=== PATIENT | male | born 1970 | race Hispanic/Latino ===

== ENCOUNTER 2018-07-02 21:22 | Emergency (ER) | payer BC, OTHER ==
[2018-07-02 21:39] VITALS: BMI 21.4
--- NOTE | 2018-07-02 22:52 | ED PDOC ---
Arrival/HPI - General Chief Complaint: Trauma Time Seen by Provider: 07/02/18 21:37 Historian: Patient - History of Present Illness Narrative History of Present Illness (Text): 07/02/18 22:49 48 year old male, with no significant past medical history, presents to the emergency department for evaluation, status post fall outdoors. Patient informs falling and hitting face on the ground. Patient states he injured his nose in the fall. Patient denies any loss of consciousness. Patient has a noted abrasion/ cut to the nose. Patient denies any neck pain, headache, nausea, vomiting, diarrhea, or any other complaint.Admits to having a few alcoholic drinks but states he is not drunk. Time/Duration: Prior to Arrival Symptom Onset: Sudden Context: Street Past Medical History - Provider Review Nursing Documentation Reviewed: Yes - Psychiatric Hx Substance Use: No - Anesthesia Hx Anesthesia: No Family/Social History - Physician Review Nursing Documentation Reviewed: Yes Family/Social History: No Known Family HX Smoking Status: Never Smoked Hx Alcohol Use: Yes Frequency of alcohol use: Socially Hx Substance Use: No Allergies/Home Meds Allergies/Adverse Reactions: Allergies No Known Allergies Allergy (Verified 07/02/18 21:33) Review of Systems - Physician Review All systems were reviewed & negative as marked: Yes - Review of Systems Gastrointestinal: absent: Diarrhea, Nausea, Vomiting Musculoskeletal: absent: Neck Pain Skin: Laceration (LAC/ abrassion to the nose) Neurological: absent: Headache Physical Exam Temperature: Afebrile Blood Pressure: Normal Pulse: Regular Respiratory Rate: Normal Appearance: Positive for: Well-Appearing, Non-Toxic, Comfortable Pain Distress: None Mental Status: Positive for: Alert and Oriented X 3 - Systems Exam Head: Present: Abrasion (facial) Pupils: Present: PERRL Extroacular Muscles: Present: EOMI Conjunctiva: Present: Normal Ears: Present: NORMAL TM Mouth: Present: Moist Mucous Membranes, Other (0.5 cm inner upper oral mucosal laceration lip area) Nose (External): Present: Laceration (<0.5 cm laceration to the nasal bridge with minimal bridge swelling) Nose (Internal): No: Epistaxis Neck: Present: Normal Range of Motion Respiratory/Chest: Present: Clear to Auscultation, Good Air Exchange. No: Respiratory Distress, Accessory Muscle Use Cardiovascular: Present: Regular Rate and Rhythm, Normal S1, S2. No: Murmurs Abdomen: No: Tenderness, Distention, Peritoneal Signs Back: Present: Normal Inspection Upper Extremity: Present: Normal Inspection. No: Cyanosis, Edema Lower Extremity: Present: Normal Inspection. No: Edema Neurological: Present: GCS=15, CN II-XII Intact, Speech Normal, Motor Func Grossly Intact, Normal Sensory Function Skin: Present: Warm, Dry, Normal Color. No: Rashes Psychiatric: Present: Alert, Oriented x 3, Normal Insight, Normal Concentration Medical Decision Making ED Course and Treatment: 07/02/18 22:55 Impression: 48 year old male presents for evaluation after fall Plan: -- CT Head -- CT Maxillofacial -- Reassess and disposition Prior Visits: Notes and results from previous visits were reviewed. Progress Notes: 07/03/18 00:07 Surgical consult was requested for suture repair.Patient had wounds sutured by Dr. Lucius Rangel under my supervision. 07/03/18 00:24 Patient is signing out against medical advice. Patient has refused CT scan studies of his face and head. Patient understand the risk including the possibility of fracture and bleeding. Nevertheless, patient is insistent about not wanting scans. Patient's mother is also present with him. Patient will be given discharge instructions for follow up care of his wounds, and a prescription for antibiotics. The patient declines to have further medical evaluation and treatment and wishes to leave the Emergency Department. This action is against my medical advice to the patient, and with informed refusal. The patient was told that evaluation and treatment are necessary and a full explanation of the rationale was given. The risks of leaving were explained to the patient and include, but are not limited to, worsening of known or currently unknown conditions, permanent disability and from undiagnosed or untreated conditions The patient has the capacity to make this informed decision and understands the clinical situation and my explanation of the risks of leaving. The patient voluntarily accepts these risks, and a signed AMA form documenting our conversation was obtained. The patient was given the opportunity to ask questions and reconsider. The patient was encouraged to return to the Emergency Department at any time for further care. The patient declines CT Scans of face and head, as recommended for medical evaluation. This action is against my medical advice to the patient and with informed refusal. The patient was told that this evaluation is necessary and a full explanation of the rationale was given. The risks of refusing were explained to the patient and include, but are not limited to, worsening of known or currently unknown conditions, permanent disability and from undiagnosed or untreated conditions. The patient has the capacity to make this decision and has the capacity to understand the clinical situation and my explanation of the risks of refusing this test. The patient voluntarily accepts these risks. The patient was given the opportunity to ask questions and reconsider. - RAD Interpretation Radiology Orders: 07/02/18 21:41 HEAD W/O CONTRAST [CT] Stat MAXILLOFACIAL W/O CONTRAST [CT] Stat - Scribe Statement The provider has reviewed the documentation as recorded by the Scribe Hernan Lou Provider Scribe Attestation: All medical record entries made by the Scribe were at my direction and personally dictated by me. I have reviewed the chart and agree that the record accurately reflects my personal performance of the history, physical exam, medical decision making, and the department course for this patient. I have also personally directed, reviewed, and agree with the discharge instructions and disposition. Disposition/Present on Arrival - Present on Arrival Any Indicators Present on Arrival: No History of DVT/PE: No History of Uncontrolled Diabetes: No Urinary Catheter: No History of Decub. Ulcer: No History Surgical Site Infection Following: None - Disposition Have Diagnosis and Disposition been Completed?: Yes Diagnosis: Nasal laceration, Facial injury, Head injury, Facial abrasion, Laceration of mouth Disposition: AGAINST MEDICAL ADVICE Disposition Time: 00:17 Condition: GOOD Additional Instructions: Take medication as prescribed/must follow up in 5 days to have your sutures removed Prescriptions: Amoxicillin [Amoxil 500 mg Cap] 500 mg PO TID #21 cap Forms: Sitemasher (Nepali)
[2018-07-02] MEDS ORDERED: Lidocaine PF 2% (5 ml) Inj (For Cardiac Arrhy) ONE (23:07)
[2018-07-02 23:57] VITALS: RESP 20; TEMP 98; O2SAT 99
--- NOTE | 2018-07-03 00:01 | PCM.PROC ---
Procedures Attestation:: I certify that I have explained the specified Operation(s) or Procedure(s), risks, benefits and reasonable alternatives to the Patient and/or other person responsible. The opportunity was given to ask questions and all questions answered - Laceration lidocaine 2% simple, single layer linear irrigated extensively right face 4-0 other local infiltration simple, interrupted Site: other (right superolateral aspect of nose) Side (if applicable): right Description: linear Depth: simple, single layer Anesthesia used: lidocaine 2% Anesthesia technique: local infiltration Amount (mLs): 2 Pre-repair: irrigated extensively Skin layer closed with: other (proline) Size: 4-0 Number of sutures: 4 Technique: simple, interrupted lidocaine 2% simple, single layer linear irrigated extensively lip 4-0 other local infiltration simple, interrupted Site: lip Description: linear Depth: simple, single layer Anesthesia used: lidocaine 2% Anesthesia technique: local infiltration Pre-repair: irrigated extensively Size: 4-0, other (monocryl) Number of sutures: 3 Technique: simple, interrupted
--- NOTE | 2018-07-03 00:14 | CP.PCM.PN ---
Subjective - Date & Time of Evaluation Date of Evaluation: 07/03/18 Time of Evaluation: 11:35 - Subjective Subjective: PROCEDURE NOTE: 48M presented with small laceration along right superolateral border of nose measuring approximately 0.7cm as well as a superficial laceration along the inner border of the upper lip measuring approximately 0.6cm after suffering a fall. Informed consent was obtained before procedure started from mother at bedside as patient is inebriated and unable to make appropriate decisions. The appropriate timeout was taken. The area was prepped and draped in the usual sterile fashion. Local anesthesia was achieved using ~5cc of Lidocaine 2% without epinephrine. The wounds were copiously irrigated.4-0 proline interrupted sutures were placed in the right superolateral border of nose x4. 4-0 monocryl interrupted sutures were placed on superficial inner lip laceration x3. Estimated blood loss was less than 0.5 mL.Standard post-procedure care, was explained. Return precautions given. The patient tolerated the procedure well without complications. Follow-up visit set for suture removal and evaluation of the laceration. Objective - Vital Signs/Intake and Output Vital Signs (last 24 hours): Temp Pulse Resp BP Pulse Ox 98 F 89 20 113/76 99 07/02/18 23:57 07/02/18 23:57 07/02/18 23:57 07/02/18 23:57 07/02/18 23:57
[2018-07-03] MEDS ORDERED: TDAP Vaccine 0.5 mL Syr IM ONE (00:24)
[2018-07-03 04:36] VITALS: BP 115/77; PULSE 82
== END 2018-07-03 00:33 | disposition left against medical advice (07) ==
LOC: ED 21:22
DX: S01.21XA Laceration without foreign body of nose, initial encounter (principal); S00.81XA Abrasion of other part of head, initial encounter; S01.512A Laceration without foreign body of oral cavity, initial encounter; W18.30XA Fall on same level, unspecified, initial encounter